=== PATIENT | female | born 1975 | race Caucasian/White ===

== ENCOUNTER → 2023-03-22 11:01 | Outpatient (CLI) | payer MEDICAID, SELFPAY ==
--- NOTE | 2023-03-22 11:01 | MM_ITS ---
PROCEDURE INFORMATION: Exam: MG Bilateral Screening 3D Mammography Exam date and time: 03/22/2023 10:48 AM Age: 48 years old Clinical indication: Screening examination TECHNIQUE: Imaging protocol: Bilateral Screening tomosynthesis and 2D mammography including computer-aided detection (CAD) when performed. COMPARISON: No relevant prior studies available. FINDINGS: MAMMOGRAPHY: Breast composition: There are scattered areas of fibroglandular density. Mass: None. Architectural distortion: None. Calcifications: No suspicious calcifications. Asymmetric density: None. Skin thickening: None. Axillary adenopathy: None. IMPRESSION: No mammographic evidence of malignancy. Annual screening is recommended unless otherwise clinically indicated. ASSESSMENT: BI-RADS Category 1: Negative
== END ==
PROVIDERS: PCP Obstetrics & Gynecology; Visit Provider Obstetrics & Gynecology
DX: Z12.31 Encounter for screening mammogram for malignant neoplasm of breast (principal)
CPT/HCPCS: 77063; 77067

== ENCOUNTER 2023-05-18 11:36 | Day surgery (SDC) | payer MEDICAID, SELFPAY ==
[2023-05-17 13:21] VITALS: BP 131/76; PULSE 62; RESP 18; O2SAT 97
[2023-05-18 12:01] VITALS: BMI 41.5
[2023-05-18 12:04] VITALS: BP 147/82; PULSE 76; RESP 18; TEMP 36.3; O2SAT 96
--- NOTE | 2023-05-18 12:40 | EXP.ANES.CKL ---
[facility] Disclaimer: The information contained in this section may have been updated after the patient was seen, as this information can be updated by other users. Medical History History of kidney stones Surgical History History of section History of dental surgery History of orthopedic surgery Hx of cholecystectomy Family History Mother Diabetes Grandmother Cancer Social History Smoking Status: Current every day smoker tobacco type: cigarettes alcohol intake: current substance use type: former substance user current occupational status: unemployed Travel in the last 8 weeks: None [facility] Anesthesia Checklist Patient Identification Patient Identification: Arm Band and Verbal (Name & ) Structural Data Admitted From: Home Planned Operative Procedure/s: Colonoscopy Consent for Planned Operative Procedure(s) Verified: Yes NPO Status Verified Time NPO: 00:00 Chart Verification Results Verified: HCG Additional verifications Anesthesia Reactions: No Airway Assessment Mallampati Score:: Class IV C-Spine Mobility Assessed: Yes TMJ Mobility Assessed: Yes Dentition: Edentulous Neurological Assessment Level of Consciousness: Awake Hx Seizures: No Numbness or tingling in extremities: No Anesthesia Plan Anesthesia Risk discussed: Yes Anesthesia Plan: Verified ASA Class: III Anesthesia Type: MAC
[2023-05-18 12:49] LABS: HCG Qualitative, Serum Negative (Negative)
[2023-05-18 12:52] VITALS: O2SAT 96
[2023-05-18 13:01] VITALS: BP 122/69; PULSE 71; RESP 20; TEMP 36.2; O2SAT 94
--- NOTE | 2023-05-18 13:01 | HMH.SCOPE ---
Procedure: Date: 05/18/23 Patient Date of :: 1975 Procedure Performed:: Colonoscopy (aborted) Indications:: Screening Performing Provider:: Cesar Kramer MD Referring Provider:: . Sedation:: Monitored anesthesia care Procedure:: After informed consent was obtained the patient was taken to the endoscopy suite. Sedation ensued after the patient was transferred to the left lateral decubitus position. Pulse, blood pressure, and oxygen saturation were monitored throughout the procedure. Digital rectal exam revealed palpable stool. A large amount of formed stool was noted to be within the rectal vault. The decision was made to abort secondary to exceedingly poor bowel preparation. The patient was transferred to recovery in stable condition. Please see findings and specimens below for detail. Findings:: Extremely poor bowel preparation Colonoscopy aborted Specimens:: None Recommendations:: Repeat colonoscopy with extended bowel preparation as soon as possible. Consider gastroenterology evaluation secondary to likely chronic constipation. If gastroenterology consultation scheduled, short-term repeat colonoscopy will be deferred to their service. Complications:: Extremely poor bowel preparation Estimated blood obtained (mL): 0 Colonoscopy Component Colonoscopy Component Was a colonoscopy performed during today's procedure?: Yes Recommended follow up colonoscopy of at least 10 years?: No If no, follow up colonoscopy recommended in ___ years?: (See above) Reason for not recommending >/= 10 yr follow-up interval?: (See above)
[2023-05-18 13:11] VITALS: BP 143/69; PULSE 76; RESP 18; O2SAT 97
[2023-05-18 13:31] VITALS: BP 117/76; PULSE 18; RESP 16; O2SAT 97
== END 2023-05-18 14:04 | disposition home or self-care (01) ==
PROVIDERS: PCP Internal Medicine; Visit Provider Surgery
PROC: 0DJD8ZZ Inspection of Lower Intestinal Tract, Via Natural or Artificial Opening Endoscopic (ICD-10-PCS; CPT 45378; principal; 2023-05-18 11:30)
DX: Z91.199 Patient's noncompliance with other medical treatment and regimen due to unspecified reason (principal); Z12.11 Encounter for screening for malignant neoplasm of colon
CPT/HCPCS: 45378; 84703

== ENCOUNTER → 2023-06-02 16:12 | Outpatient (CLI) | payer MEDICAID, SELFPAY ==
[2023-06-02 13:52] LABS: Basophils % 0.5 % (0.1-2.0); Eosinophils # 0.1 K/mm3 (0.0-0.4); Eosinophils % 1.8 % (0.1-12.0); Hematocrit 43.2 % (37.0-47.0); Lymphocytes # 1.5 K/mm3 (0.7-4.5); Lymphocytes % 20.1 % (10-50); Mean Corpuscular HGB Conc 32.3 g/dL (31.8-35.4); Mean Corpuscular Hemoglobin 30.7 pg (27.0-31.2); Mean Corpuscular Volume 94.9 fl (81-99); Mean Platelet Volume 8.9 fl (7.4-10.4); Monocytes # 0.5 K/mm3 (0.1-1.0); Neutrophils # 5.2 K/mm3 (1.8-7.8); Neutrophils % 70.7 % (37.0-80.0); Platelet Count 352 K/mm3 (142-424); Red Blood Count 4.55 M/mm3 (4.20-5.40); Red Cell Distribution Width 14.4 % (11.5-17.5); White Blood Count 7.3 K/mm3 (4.8-10.8)
[2023-06-02 14:21] LABS: Hemoglobin A1C 5.5 % (4.0-6.0)
[2023-06-02 14:40] LABS: Alanine Aminotransferase 32 U/L (12-78); Albumin/Globulin Ratio 1.2 (1.1-1.8); Alkaline Phosphatase 116 U/L (38-126); Anion Gap 13.3 mEq/L (5-15); Aspartate Amino Transferase 27 U/L (14-36); Bilirubin,Total 0.4 mg/dl (0.2-1.3); Blood Urea Nitrogen 14 mg/dl (7-17); Calcium 10.3 mg/dl (8.4-10.2); Carbon Dioxide 31 mmol/L (22.0-30.0); Chloride 97 mmol/L (98-107); Chol/HDL Ratio 6.1 (1-3.5); Cholesterol 255 mg/dl (140-200); Estimated Glomerular Filt Rate 67 ml/min (>60); GFR (African American) 82 ML/MIN (>60); Globulin 3.3 g/dL (1.3-3.2); Glucose 101 mg/dl (74-100); HDL Cholesterol 42 mg/dl (40-60); Potassium 5.3 mmoL/L (3.5-5.1); Sodium 136 mmol/L (136-145); Total Protein,Serum 7.3 g/dl (6.3-8.2); Triglycerides 138 mg/dl (30-150); VLDL Cholesterol 28 mg/dL (0-40)
[2023-06-02 14:51] LABS: Direct LDL Cholesterol 156.21 mg/dL (100-129)
[2023-06-02 14:53] LABS: NT Pro Brain Natriuretic Pep. < 20.0 pg/mL (0-125)
[2023-06-02 15:01] LABS: Free T4 (Free Thyroxine) 1.22 ng/dl (0.78-2.19)
[2023-06-02 15:30] LABS: 25-OH Vitamin D, Total 48.3 ng/mL (30-100)
== END ==
PROVIDERS: PCP Internal Medicine; Visit Provider Internal Medicine
DX: Z00.00 Encounter for general adult medical examination without abnormal findings (principal); Z13.21 Encounter for screening for nutritional disorder; Z13.29 Encounter for screening for other suspected endocrine disorder; Z13.1 Encounter for screening for diabetes mellitus; Z13.220 Encounter for screening for lipoid disorders; R60.9 Edema, unspecified; Z68.43 Body mass index [BMI] 50.0-59.9, adult
CPT/HCPCS: 80053; 80061; 82306; 83036; 83880; 84439; 84443; 85025

== ENCOUNTER 2024-01-05 15:40 | Outpatient (CLI) | payer MEDICAID, SELFPAY ==
[2024-01-05 13:52] LABS: Alanine Aminotransferase 30 U/L (12-78); Albumin Level 4.4 g/dl (3.5-5.0); Albumin/Globulin Ratio 1.3 (1.1-1.8); Alkaline Phosphatase 115 U/L (38-126); Aspartate Amino Transferase 25 U/L (14-36); Bilirubin,Total 0.5 mg/dl (0.2-1.3); Blood Urea Nitrogen 18 mg/dl (7-17); Calcium 11.1 mg/dl (8.4-10.2); Carbon Dioxide 30 mmol/L (22.0-30.0); Chloride 101 mmol/L (98-107); Estimated Glomerular Filt Rate 77 ml/min (>60); GFR (African American) 93 ML/MIN (>60); Globulin 3.3 g/dL (1.3-3.2); Glucose 101 mg/dl (74-100); Sodium 142 mmol/L (136-145); Total Protein,Serum 7.7 g/dl (6.3-8.2)
[2024-01-05 14:22] LABS: Thyroid Stimulating Hormone 0.34 uIU/mL (0.465-4.68)
[2024-01-05 14:42] LABS: Vitamin B12 220 pg/mL (239-931)
== END 2024-01-05 23:59 | disposition home or self-care (01) ==
LOC: LAB.DROPOF 15:40
PROVIDERS: PCP Nurse Practitioner Family; Visit Provider Nurse Practitioner Family
DX: E66.01 Morbid (severe) obesity due to excess calories (principal); R60.9 Edema, unspecified; I10 Essential (primary) hypertension
CPT/HCPCS: 80053; 82607; 82728; 84443

== ENCOUNTER 2024-01-19 13:04 | Outpatient (CLI) | payer MEDICAID, SELFPAY ==
--- NOTE | 2024-01-19 13:04 | CA_ITS ---
APPROVED REPORT EXAM: Comprehensive 2D, Doppler, and color-flow Echocardiogram [employer]: Susie Saravia RT(R) Ht: 5 ft 7 in Wt: 328lbs BSA: 2.50 BP: 122/76 mmHg Indications: edema, HTN, smoker 2D Dimensions Left Atrium 4.95 cm F: 2.7 - 3.8 LVEF (Velarde's) 45.50 % F: 54 - 74 LVOT 2.24 cm (M/F) 1.5-2.5 LV Volume 168.70 mL F: 46 - 106 LV Volume Index 67.5 mL/m2 F: 29 - 61 LA Volume 54.80 mL LA Volume Index 21.92 mL/m2 (M/F) 16-34 EF AP4 46.40 % EF AP2 44.2 % EF BP 45.5 % GL Strain -16.3 % M-Mode Dimensions RVDd 3.01 cm (0.9-2.6) LVDd 4.84 cm (3.5-5.7) Ao Diam 2.99 cm (2.0-3.7) LVDs 3.43 cm (3.5-5.7) IVSd 1.32 cm (0.6-1.1) PWd 0.94 cm (0.6-1.1) EF (Teich) 55.70% FS 29.10% EDV (Teich) 109.60 mL ESV (Teich) 48.50 mL LV Diastology E Decel Time 189 (160-240 msec) E/A Ratio 1.3 MED E' 11.9 (>= 7 cm/sec) E'/MED E' Ratio 7.94 (<= 14) LAT E' 14.7 (>= 10 cm/sec) E/LAT E' Ratio 6.43 (<= 14) Mitral Valve MV E Max Andrea. 95.0 (40-130 cm/s) MV A Velocity 76.0 (40-130 cm/s) E/A Ratio 1.25 MV Decel. Time 189 (160-240 ms) Left Ventricle The left ventricle is normal size. The left ventricular systolic function is normal. The left ventricular ejection fraction is within the normal range. There is normal left ventricular wall thickness. There is normal LV segmental wall motion. The left ventricular diastolic function is normal. LVEF is 55%. Right Ventricle The right ventricle is normal size. The right ventricular systolic function is normal. Atria The left atrium size is normal. The right atrium size is normal. There is no Doppler evidence of interatrial shunt. Aortic Valve The aortic valve opens well. There is no aortic valvular stenosis. No aortic regurgitation is present. Mitral Valve The mitral valve is normal in structure. No evidence of mitral valve stenosis. There is no mitral valve regurgitation noted. Tricuspid Valve The tricuspid valve leaflets are thin and pliable. Trace tricuspid regurgitation. There is insufficient TR jet to estimate RVSP. Pulmonic Valve The pulmonary valve is normal in structure. Trace pulmonic regurgitation. Great Vessels The aortic root is normal in size. The ascending aorta is not well-visualized. IVC is normal in size and collapses >50% with inspiration. Pericardium There is no pericardial effusion. Other Information Study Quality: Adequate Conclusion Normal biventricular systolic function. No significant valvular stenosis or regurgitation. Electronically signed by : Rosa Shepard MD 01/23/2024 21:53:35
== END 2024-01-19 23:59 | disposition home or self-care (01) ==
LOC: RT 13:04
PROVIDERS: PCP Internal Medicine; Visit Provider Nurse Practitioner Family
DX: R60.0 Localized edema (principal); I10 Essential (primary) hypertension; F17.210 Nicotine dependence, cigarettes, uncomplicated
CPT/HCPCS: 93306

== ENCOUNTER 2024-01-25 12:25 | Outpatient (CLI) | payer MEDICAID, SELFPAY ==
[2024-01-25 13:43] LABS: Intact Parathyroid Hormone 171.9 pg/mL (7.5-53.5)
[2024-01-25 13:47] LABS: 25-OH Vitamin D, Total 55.6 ng/mL (30-100)
[2024-01-25 13:48] LABS: T4 (Thyroxine) 8.8 ug/dl (5.53-11.0)
[2024-01-25 14:01] LABS: Thyroid Stimulating Hormone 1.03 uIU/mL (0.465-4.68)
[2024-01-26 08:51] LABS: Thyroid Peroxidase Antibodies <9 IU/mL (0-34); Triiodothyronine (T3) Free 3.7 pg/mL (2.0-4.4)
[2024-01-26 16:43] LABS: Calcium, Ionized 5.6 mg/dL (4.5-5.6); Thyroglobulin Level <1.0 IU/mL (0.0-0.9)
== END 2024-01-25 23:59 | disposition home or self-care (01) ==
LOC: LAB 12:26
PROVIDERS: PCP Internal Medicine; Visit Provider Nurse Practitioner Family
DX: I89.0 Lymphedema, not elsewhere classified (principal); R79.89 Other specified abnormal findings of blood chemistry; E83.52 Hypercalcemia; E53.9 Vitamin B deficiency, unspecified
CPT/HCPCS: 36415; 82306; 82330; 83970; 84436; 84443; 84481; 86376; 86800

== ENCOUNTER 2024-02-21 08:26 | Outpatient (CLI) | payer MEDICAID, SELFPAY ==
--- NOTE | 2024-02-21 08:29 | NM_ITS ---
FINAL REPORT CLINICAL HISTORY: Elevated PTH and calcium COMPARISON: None FINDINGS: 21.4 mCi Technetium 99-M Sestamibi was administered. Planar imaging was performed early and two-hour delayed of the neck and upper thorax. Early imaging shows physiologic uptake within the upper neck involving the salivary glands and lower neck involving the thyroid gland. On delayed imaging there is no abnormal retained activity in the lower neck or mediastinum to localize parathyroid adenoma. IMPRESSION: No scintigraphic evidence of parathyroid adenoma. Reviewed, Interpreted and Dictated by Ronald Bro MD Transcribed by Rylee Myers Authenticated and . [facility]
[2024-02-21] MEDS: SODIUM CHLORIDE 0.9% 10ML SYR (RAD ONLY) 10 ML IV (08:59)
[2024-02-21] MEDS: ISO TC99M (SESTAMIBI);1 DOSE VIAL IV (08:59)
== END 2024-02-21 23:59 | disposition home or self-care (01) ==
LOC: RAD 08:26
PROVIDERS: PCP Internal Medicine; Visit Provider Nurse Practitioner Family
DX: R79.89 Other specified abnormal findings of blood chemistry (principal)
CPT/HCPCS: 78070; A9500

== ENCOUNTER 2024-06-06 16:26 | Outpatient (CLI) | payer MEDICAID, SELFPAY ==
[2024-06-06 14:10] LABS: Alanine Aminotransferase 29 U/L (12-78); Albumin/Globulin Ratio 1.3 (1.1-1.8); Alkaline Phosphatase 113 U/L (38-126); Anion Gap 12.8 mEq/L (5-15); Aspartate Amino Transferase 29 U/L (14-36); Bilirubin,Total 0.6 mg/dl (0.2-1.3); Blood Urea Nitrogen 9 mg/dl (7-17); Calcium 10.4 mg/dl (8.4-10.2); Carbon Dioxide 25 mmol/L (22.0-30.0); Chloride 105 mmol/L (98-107); Estimated Glomerular Filt Rate 90 ml/min (>60); GFR (African American) 109 ML/MIN (>60); Glucose 98 mg/dl (74-100); Potassium 4.8 mmoL/L (3.5-5.1); Sodium 138 mmol/L (136-145)
[2024-06-06 14:59] LABS: Vitamin B12 543 pg/mL (239-931)
== END 2024-06-06 23:59 | disposition home or self-care (01) ==
LOC: LAB.DROPOF 16:27
PROVIDERS: PCP Internal Medicine; Visit Provider Internal Medicine
DX: R79.89 Other specified abnormal findings of blood chemistry (principal); E83.52 Hypercalcemia
CPT/HCPCS: 80053; 82607